=== PATIENT | male | born 1945 | race Caucasian/White ===

== ENCOUNTER 2023-04-10 11:47 | Inpatient (IN) ==
[2023-04-10] MEDS: morphine 2 MG/ML VIAL IV ONE (12:48)
[2023-04-10 13:00] LABS: Basophils # (Auto) 0.05 K/mcL (0.00-0.30); Basophils % (Auto) 0.4 % (0.0-2.0); Eosinophils # (Auto) 0.03 K/mcL (0.00-0.70); Eosinophils % (Auto) 0.2 % (0.0-7.0); Hematocrit 45.4 % (40.1-51.0); Lymphocytes # (Auto) 0.72 K/mcL (1.50-4.80); Lymphocytes % (Auto) 5.5 % (15.5-49.0); Mean Cell Volume 90.6 fL (80.0-100.0); Mean Platelet Volume 10.6 fL (8.8-12.5); Monocytes % (Auto) 4.6 % (1.0-12.0); Neutrophils % (Auto) 88.5 % (38.0-78.0); Platelet Count 231 K/mcL (140-440); RBC 5.01 M/mcL (4.63-6.08); Red Cell Distribution Width 13.2 % (11.5-14.5)
[2023-04-10] MEDS: diphenhydrAMINE 50 MG/ML VIAL ONE (13:13)
[2023-04-10 13:18] LABS: ALT/SGPT 7 U/L (<40); AST/SGOT 23 U/L (<40); Albumin 4.1 gm/dL (3.2-5.2); Albumin/Globulin Ratio 1.4 (1.0-2.3); Alkaline Phosphatase 75 U/L (39-117); Bilirubin,Total 0.6 mg/dL (0.1-1.0); Blood Urea Nitrogen 16 mg/dL (8-23); Calcium 9.5 mg/dL (8.6-10.4); Carbon Dioxide 22 mmol/L (22-30); Chloride 98 mmol/L (96-108); Glomerular Filtration Rate 71; Glucose 353 mg/dL (70-105)
[2023-04-10 13:58] LABS: INR 1.1 (0.9-1.1); Prothrombin Time 14.5 sec (11.9-14.5)
[2023-04-10] MEDS ORDERED: PROPOFOL 200 MG/20 ML VIAL IV ONE ×2 (14:37→16:34)
[2023-04-10] MEDS ORDERED: fentaNYL 100 MCG/2 ML VIAL ONE (14:38)
[2023-04-10] MEDS: ceFAZolin 2 GM in DEXTROSE 5% IN WATER 50 ML IV SCH (14:59)
[2023-04-10] MEDS ORDERED: ROCURONIUM 10 MG/ML ML IV ONE (15:04)
[2023-04-10] MEDS: INSULIN REGULAR, HUMAN 1 UNIT/0.01 ML UNIT SQ SCH (15:05)
[2023-04-10] MEDS ORDERED: TRANEXAMIC ACID 1,000 MG/10 ML VIAL ONE (15:26)
[2023-04-10] MEDS ORDERED: ONDANSETRON 4 MG/2 ML VIAL ONE (15:42)
[2023-04-10] MEDS ORDERED: HYDROmorphone 1 MG/ML SYRINGE ONE (16:20)
[2023-04-10] MEDS ORDERED: SUGAMMADEX SODIUM 200 MG/2 ML VIAL IV ONE (16:29)
[2023-04-10] MEDS ORDERED: morphine 4 MG/ML VIAL IV PRN ×2 (16:33→17:37)
[2023-04-10] MEDS ORDERED: METHOCARBAMOL 1,000 MG/10 ML VIAL IV PRN (17:07)
[2023-04-10] MEDS ORDERED: fentaNYL 100 MCG/2 ML VIAL IV PRN (17:07)
[2023-04-10] MEDS ORDERED: NALOXONE HCL 0.4 MG/ML VIAL IV PRN (17:07)
[2023-04-10] MEDS ORDERED: IPRATROPIUM/ALBUTEROL 3 ML AMPUL.NEB NEB PRN ×2 (17:07→17:37)
[2023-04-10] MEDS ORDERED: ONDANSETRON 4 MG/2 ML VIAL IV PRN ×2 (17:07→17:37)
[2023-04-10] MEDS: TRANEXAMIC ACID 1,000 MG/10 ML VIAL IV ONE (17:16)
[2023-04-10] MEDS ORDERED: SENNOSIDES 1 TABLET PO PRN (17:37)
[2023-04-10] MEDS ORDERED: LABETALOL HCL 20 MG/4 ML VIAL IV PRN (17:37)
[2023-04-10] MEDS ORDERED: DEXTROSE 50% 50 ML VIAL IV PRN (17:37)
[2023-04-10] MEDS ORDERED: POTASSIUM CHLORIDE 20 MEQ TABLET PO PRN ×2 (17:37)
[2023-04-10] MEDS ORDERED: MAGNESIUM SULFATE 2 GM/50 ML BAG IV PRN (17:37)
[2023-04-10] MEDS ORDERED: HYDROcodone/APAP 5/325MG TABLET PO PRN (17:37)
[2023-04-10] MEDS ORDERED: ENALAPRILAT 1.25 MG/ML VIAL IV PRN (17:37)
[2023-04-10] MEDS ORDERED: POLYETHYLENE GLYCOL 3350 17 GM PACKET PO PRN (17:37)
[2023-04-10] MEDS ORDERED: POTASSIUM CHLORIDE 40 MEQ in DEXTROSE 5% IN WATER 500 ML IV PRN (17:37)
[2023-04-10] MEDS ORDERED: DEXTROSE 31 GM ORAL.SUSP PO PRN (17:37)
[2023-04-10] MEDS: 0.9 % SODIUM CHLORIDE 1,000 ML IV SCH ×2 (18:06→18:07)
[2023-04-10] MEDS: INSULIN LISPRO 1 UNIT/0.01 ML UNIT SQ SCH (18:07)
[2023-04-10] MEDS: HYDROcodone/APAP 5/325MG TABLET PO PRN (18:07)
[2023-04-10] MEDS: INSULIN LISPRO 1 UNIT/0.01 ML UNIT SQ ONE ×2 (18:08→20:40)
[2023-04-10] MEDS: ASPIRIN 325 MG ENTERIC COATED TABLET PO SCH (20:04)
[2023-04-10] MEDS: TAMSULOSIN 0.4 MG CAPSULE PO SCH (20:04)
[2023-04-10] MEDS: DOCUSATE SODIUM 100 MG CAPSULE PO SCH (20:06)
[2023-04-10] MEDS: 0.9 % SODIUM CHLORIDE 10 ML SYRINGE IV SCH (20:06)
[2023-04-10] MEDS: ceFAZolin 1 GM VIAL IV SCH (23:00)
[2023-04-11 06:06] LABS: Basophils # (Auto) 0.03 K/mcL (0.00-0.30); Basophils % (Auto) 0.4 % (0.0-2.0); Eosinophils # (Auto) 0.04 K/mcL (0.00-0.70); Eosinophils % (Auto) 0.5 % (0.0-7.0); Hematocrit 39.4 % (40.1-51.0); Lymphocytes # (Auto) 0.78 K/mcL (1.50-4.80); Lymphocytes % (Auto) 9.1 % (15.5-49.0); Mean Platelet Volume 10.9 fL (8.8-12.5); Monocytes # (Auto) 0.87 K/mcL (0.10-0.90); Monocytes % (Auto) 10.2 % (1.0-12.0); Neutrophils % (Auto) 79.3 % (38.0-78.0); Platelet Count 211 K/mcL (140-440); RBC 4.33 M/mcL (4.63-6.08); Red Cell Distribution Width 13.4 % (11.5-14.5); WBC 8.6 K/mcL (4.5-11.0)
[2023-04-11 06:10] LABS: ALT/SGPT 9 U/L (<40); AST/SGOT 33 U/L (<40); Albumin 3.4 gm/dL (3.2-5.2); Albumin/Globulin Ratio 1.4 (1.0-2.3); Alkaline Phosphatase 68 U/L (39-117); Bilirubin,Direct < 0.2 mg/dL (0-0.3); Bilirubin,Total 0.6 mg/dL (0.1-1.0); Blood Urea Nitrogen 14 mg/dL (8-23); Calcium 8.3 mg/dL (8.6-10.4); Carbon Dioxide 22 mmol/L (22-30); Chloride 97 mmol/L (96-108); Globulin 2.5 gm/dL (2.2-3.7); Glomerular Filtration Rate 84; Glucose 282 mg/dL (70-105); Lactate Dehydrogenase 284 U/L (135-225); Phosphorous 2.7 mg/dL (2.5-4.5); Triglycerides 57 mg/dL (<150); Uric Acid 4.5 mg/dL (2.5-8.0)
[2023-04-11] MEDS: INSULIN GLARGINE, HUMAN 1 UNIT/0.01 ML SQ SCH (08:32)
[2023-04-11 09:34] LABS: Appearance,Urine Clear (Clear); Bacteria,Urine 0 /hpf (0); Bilirubin,Urine Negative (Negative); Color,Urine Yellow; Culture Indicated,Urine No; Glucose,Urine (UA) 500 mg/dL (Negative); Ketones,Urine 40 mg/dL (Negative); Leukocyte Esterase,Urine Negative /uL (Negative); Mucus,Urine Few /hpf; Nitrate,Urine Negative (Negative); PH,Urine 5.5 (5.0-9.0); Protein,Urine Trace mg/dL (Negative); Urine Blood Small ery/mcL (Negative); Urine Hyaline Cast 3 /lph (0-2); Urine RBC 6 /hpf (0-3); Urine Squamous Epithelial Cell < 1 /hpf (0-4); Urine WBC < 1 /hpf (0-4); Urobilinogen,Urine Normal
[2023-04-11 10:39] LABS: Hemoglobin A1C 7.1 % Hgb (4.0-6.0)
[2023-04-11] MEDS: ACETAMINOPHEN 325 MG TABLET PO PRN (13:49)
[2023-04-12] MEDS: ceFAZolin 2 GM in DEXTROSE 5% IN WATER 50 ML IV SCH (02:52)
[2023-04-12 06:30] LABS: Blood Urea Nitrogen 18 mg/dL (8-23); Carbon Dioxide 18 mmol/L (22-30); Chloride 96 mmol/L (96-108); Glomerular Filtration Rate 84; Glucose 367 mg/dL (70-105)
[2023-04-12] MEDS: SODIUM CHLORIDE 1 GM TABLET PO SCH (08:51)
[2023-04-12] MEDS: 0.9 % SODIUM CHLORIDE 500 ML IV ONE ×2 (11:15→14:47)
[2023-04-13 06:44] LABS: Blood Urea Nitrogen 19 mg/dL (8-23); Calcium 7.9 mg/dL (8.6-10.4); Carbon Dioxide 21 mmol/L (22-30); Chloride 101 mmol/L (96-108); Glomerular Filtration Rate 89; Glucose 275 mg/dL (70-105)
[2023-04-13] MEDS: INSULIN GLARGINE, HUMAN 1 UNIT/0.01 ML SQ SCH (09:25)
[2023-04-13] MEDS ORDERED: LABETALOL 5 MG/ML ML IV PRN (09:45)
[2023-04-13] MEDS: INSULIN LISPRO 1 UNIT/0.01 ML UNIT SQ SCH (11:47)
== END 2023-04-13 16:10 | DRG 522 ==
LOC: ED 11:47 → SUR 14:36 → MEDSUR 17:31
PROVIDERS: ADMIT Internal Medicine; ATTEND Internal Medicine
PROC: HEMIHIP (2023-04-10 15:09)